=== PATIENT | male | born 1950 | race Caucasian/White ===

== ENCOUNTER 2018-07-23 10:44 | Outpatient (CLI) | payer OTHER ==
[2018-07-23 19:22] LABS: ALBUMIN 4.2 g/dL (3.2-5.5); ALBUMIN/GLOBULIN RATIO 1.4 (1.0-2.2); ALKALINE PHOSPHATASE 76 IU/L (42-121); ALT ALANINE AMINOTRANSFERASE 24 IU/L (10-60); AST ASPARTATE AMINOTRANSFERASE 30 IU/L (10-42); BILIRUBIN,TOTAL 0.8 mg/dL (0.2-1.0); BUN - BLOOD UREA NITROGEN 17 mg/dL (6-20); CALCIUM 9.1 mg/dL (8.5-10.3); CARBON DIOXIDE - CO2 29 mmol/L (21-32); CHLORIDE 107 mmol/L (101-111); CHOL/HDL RATIO 3.6 (<5.0); CHOLESTEROL 164 mg/dL; GFR - MDRD 74 (>89); GLUCOSE 93 mg/dL (70-100); HDL CHOLESTEROL 46 mg/dL; LDL CHOLESTEROL,CALCULATED 86 mg/dL; LDL/HDL RATIO 1.9 (<3.6); SODIUM 141 mmol/L (135-145); TOTAL PROTEIN 7.3 g/dL (6.7-8.2); URIC ACID 7.5 mg/dL (2.6-7.2); VLDL CHOLESTEROL 32 mg/dL
== END 2018-07-23 10:45 ==
LOC: LAB.WCP 10:44
PROVIDERS: ATTEND Family Medicine
DX: E78.5 Hyperlipidemia, unspecified (principal); M10.9 Gout, unspecified
CPT/HCPCS: 36415; 80053; 80061; 83721; 84550

== ENCOUNTER 2019-02-26 08:00 | Outpatient (CLI) | payer OTHER | END 2019-02-26 23:59 | disposition home or self-care (01) | LOC: LAB.R 08:00 | PROVIDERS: ATTEND Family Medicine | DX: N39.0 Urinary tract infection, site not specified (principal) | CPT/HCPCS: 87086 ==